=== PATIENT | male | born 1965 | race Caucasian/White ===

== ENCOUNTER 2018-02-06 01:36 | Emergency (ER) | payer MEDICARE ==
[~2018-02-06] VITALS: Ht 182.9 cm; Wt 140.6 kg
[~2018-02-06 01:36] MED LIST: ALBU90OI INH; CIPR500; CLIN300 PO; CYCL10 PO; DIAZ5 PO; DOXY100 PO; Duoneb 2.5-0.5 M3 ML INH; FURO20 PO; HYDACE10B; HYDACE10B PO; HYDACE5 PO; IBUP400 PO; IBUP600 PO; IBUP800 PO; IRON; NAPR500 PO; NORCO; OMEP10ER; OXYACE5T PO; OXYACE7.5T PO; OXYC10ER PO; POTCHL20ER PO; PROM25 PO; Prednisone20 MG PO; RANI150; RANITIDINE; TRAM50 PO; Zithromax250 MG PO
[2018-02-06] MEDS ORDERED: ANTIDEPRESSANT (02:07)
[2018-02-06] MEDS ORDERED: POTCHL10ER PO (02:07)
[2018-02-06] MEDS ORDERED: FURO20 (02:07)
[2018-02-06] MEDS ORDERED: Vibramycin100 MG PO (05:20)
[2018-02-06] MEDS ORDERED: Percocet 10-321 EACH PO (05:20)
== END 2018-02-06 05:30 | disposition home or self-care (01) ==
LOC: ER 01:36
DX: L02.413 Cutaneous abscess of right upper limb (principal); F17.210 Nicotine dependence, cigarettes, uncomplicated; Z88.0 Allergy status to penicillin; Z79.899 Other long term (current) drug therapy
CPT/HCPCS: 99282